=== PATIENT | female | born 1970 | race Caucasian/White ===

== ENCOUNTER 2020-01-26 10:09 | Emergency (ER) | payer OTHER ==
[~2020-01-26] VITALS: Ht 157.5 cm; Wt 113.4 kg
[2020-01-26 10:09] VITALS: BP 155/93
--- NOTE | 2020-01-26 10:09 | NUR ---
Patient BIBA ALS from [facility], transferred to bed 5. RN evaluating patient at bedside.
[2020-01-26 10:10] VITALS: BP 181/93
--- NOTE | 2020-01-26 10:10 | NUR ---
49 YO F BIBA FROM [facility] FOR C/C OF ABNORMAL LABS, 3.0 POTASSIUM REPORTED PER [facility]. PT IS TRACH TO CPAP, NONVERBAL, VSS. PT HAS A NGT, ABDOMINAL WOUND VAC, ORTA, AND A 3 LUMEN R CHEST CENTRAL LINE, NEGATIVE FOR COVID SYMPTOMS. PT AWAKE, ALERT, AND NODS HEAD TO QUESTIONS, ABLE TO FOLLOW COMMANDS. PT PLACED ON MEDICAL BILLER/CODER/PULSE OX. BED LOCKED AND IN LOWEST POSITION. SIDE RAILS X2.
--- NOTE | 2020-01-26 10:11 | NUR ---
RT AT BEDSIDE PLACING PT ON CPAP SETTINGS PER FACILITY
--- NOTE | 2020-01-26 10:11 | NUR ---
Dr. Bustillo is evaluating the patient at bedside.
--- NOTE | 2020-01-26 10:50 | NUR ---
injection molding process technician at bedside.
--- NOTE | 2020-01-26 11:43 | NUR ---
lab at bedside
[2020-01-26 12:00] LABS: BASOPHILS # (AUTO) 0.1 K/uL (0.00-0.22); BASOPHILS % (AUTO) 0.6 % (0.0-2.0); EOSINOPHILS # (AUTO) 0.5 K/uL (0-0.4); EOSINOPHILS % (AUTO) 3.9 % (0.0-4.0); HEMATOCRIT 27.5 % (36-48); HEMOGLOBIN 9.1 g/dL (12.0-16.0); LYMPHOCYTES # (AUTO) 0.9 K/uL (2.5-16.5); LYMPHOCYTES % (AUTO) 6.5 % (20.5-51.1); MEAN CORPUSCULAR HEMOGLOBIN 31 pg (27-31); MEAN CORPUSCULAR HGB CONC 33 g/dL (33-37); MEAN CORPUSCULAR VOLUME 93.1 fL (80-94); MONOCYTES % (AUTO) 7.4 % (1.7-9.3); NEUTROPHILS # (AUTO) 11.2 K/uL (1.8-7.7); NEUTROPHILS % (AUTO) 81.6 % (42.2-75.2); PLATELET COUNT (AUTO) 429 K/uL (140-450); RED BLOOD CELL COUNT(AUTO) 2.96 MIL/uL (4.20-5.40); RED CELL DISTRIBUTION WIDTH 16.4 % (11.6-13.7); WHITE BLOOD COUNT (AUTO) 13.7 K/uL (4.8-10.8)
[2020-01-26 12:18] LABS: ALBUMIN 2.3 g/dL (3.4-5.0); ANION GAP 6.9 (8-16); CARBON DIOXIDE 36.3 mmol/L (21-32); CREATININE 1.8 mg/dL (0.6-1.3); POTASSIUM 3.2 mmol/L (3.5-5.1); TOTAL BILIRUBIN 0.3 mg/dL (0.0-1.0)
[2020-01-26] MEDS ORDERED: POTASSIUM CHLORIDE 20% 40 MEQ/15 ML UDC PO ONE (12:30)
[2020-01-26] MEDS ORDERED: AZITHROMYCIN 1,000 MG in DEXTROSE 5% 500 ML IV ONE (12:45)
[2020-01-26] MEDS ORDERED: AZITHROMYCIN 500 MG INJ VIAL IV ONE (12:45)
--- NOTE | 2020-01-26 13:16 | NUR ---
UA AND RONI SWAB COLLECTED AND TAKEN TO LAB
[2020-01-26 13:26] LABS: APPEARANCE,URINE CLEAR (CLEAR); BILIRUBIN,URINE NEGATIVE (NEGATIVE); BLOOD, URINE 3+ (NEGATIVE); COLOR,URINE YELLOW (YELLOW); LEUKOCYTE ESTERASE ,URINE 1+ (NEGATIVE); NITRITE, URINE NEGATIVE (NEGATIVE); UGLUCOSE NEGATIVE (NEGATIVE)
[2020-01-26 13:31] LABS: RBC,URINE 11-20 (MOD) /HPF (0-5)
[2020-01-26 13:33] LABS: WBC,URINE 0-5 /HPF (0-5)
[2020-01-26 14:06] LABS: PROTHROMBIN TIME 10.4 secs (10.8-13.4)
[2020-01-26] MEDS ORDERED: NACL 0.9% 1,000 ML IV ONE (14:15)
--- NOTE | 2020-01-26 14:21 | NUR ---
PT ASLEEP IN BED. EQUAL CHEST RISE AND FALL. VSS. BED LOCKED AND IN LOWEST POSITION. SIDE RAILS X2.
--- NOTE | 2020-01-26 14:38 | NUR ---
RT AT BEDSIDE
[2020-01-26 14:43] VITALS: BP 144/80
[2020-01-26] MEDS ORDERED: HYDR-5122 NGT (14:55)
[2020-01-26] MEDS ORDERED: ONDA4TAB NGT (14:57)
--- NOTE | 2020-01-26 15:00 | NUR ---
pt provided with ice packs per request. pt states she "feels hot," pt able to communicate by mouthing words. oral temp reads 98.2
[2020-01-26] MEDS ORDERED: [UNRECOGNIZED DRUG - CODE] NGT (15:01)
[2020-01-26] MEDS ORDERED: OMEP20TC12 NGT (15:02)
[2020-01-26] MEDS ORDERED: MELA1TAB32 PO (15:03)
[2020-01-26] MEDS ORDERED: HEPA500056 SQ (15:04)
[2020-01-26] MEDS ORDERED: SEVE0.8P2 PO (15:06)
[2020-01-26] MEDS ORDERED: DOCU-299 NGT (15:08)
[2020-01-26] MEDS ORDERED: MAGN400S60 NGT (15:09)
[2020-01-26] MEDS ORDERED: HYDROcodone/APAP 5/325 MG 1 TAB TAB ONE (16:12)
--- NOTE | 2020-01-26 16:13 | NUR ---
ermd made aware of 10/10 lower back pain and request for pain management
[2020-01-26] MEDS ORDERED: HYDROcodone/APAP 5/325 MG 1 TAB TAB NG ONE (16:15)
[2020-01-26] MEDS ORDERED: CRUSHER, PILL MC ONE (16:20)
--- NOTE | 2020-01-26 18:21 | NUR ---
PT REQUESTING WATER THROUGH HER GTUBE. PT GIVEN 30 ML. TOLERATED WELL.
--- NOTE | 2020-01-26 19:02 | NUR ---
PTS TRACH SUCTIONED PER REQUEST. POSITIONED FOR COMFORT. ALL PT NEEDS MET AT THIS TIME.
--- NOTE | 2020-01-26 19:17 | NUR ---
REPORT GIVEN TO MARK SUN. TRANSFER OF CARE AT THIS TIME.
--- NOTE | 2020-01-26 19:17 | NUR ---
RECEIVED REPORT FROM MARK MEEHAN. TRANSFER OF CARE AT THIS TIME.
--- NOTE | 2020-01-26 19:22 | NUR ---
RECEIVED REPORT FROM MARK MEEHAN. TRANSFER OF CARE AT THIS TIME.
--- NOTE | 2020-01-26 19:30 | NUR ---
CALLED [facility] AND GAVE REPORT TO MARK CAVAZOS. [phone]
--- NOTE | 2020-01-26 19:32 | NUR ---
TRANSPORT TEAM ARRIVED
--- NOTE | 2020-01-26 19:52 | NUR ---
EMR TO CABIN OUTFITTER PT. REPORT GIVEN TO MARK MARQUES. TRANSFER OF CARE AT THIS TIME. PT TAKEN VIA AMANDA, 2 SENIOR AUTOMATION ENGINEER AND RN. PT IN STABLE CONDITION.
[2020-01-26 20:00] VITALS: BP 134/68
--- NOTE | 2020-01-26 20:00 | NUR ---
Patient to be transferred to [facility]. Is being transferred due to INSURANCE. Receiving facility has accepting physician and available space. ER physician has signed transfer form. Patient or responsible democrat has agreed to transfer and signed form. Patient belongings inventoried and will be sent with patient. Copy of nursing notes, lab reports, EKG, Physicians Orders and X-rays to be sent with patient. Report called to MARK CAVAZOS at receiving facility. [facility] ambulance service has been called for transfer.
== END 2020-01-26 20:00 | disposition short-term general hospital (02) ==
LOC: MED 10:09
DX: J18.9 Pneumonia, unspecified organism (principal); E83.52 Hypercalcemia; E87.6 Hypokalemia; R79.89 Other specified abnormal findings of blood chemistry; E86.0 Dehydration; Z88.0 Allergy status to penicillin; Z88.5 Allergy status to narcotic agent; Z88.1 Allergy status to other antibiotic agents; Z98.890 Other specified postprocedural states
CPT/HCPCS: 36415; 71045; 80053; 81001; 83605; 83880; 84484; 85025; 85610; 85730; 87040; 87086; 87426; 93005; 96365; 96366; 99285; J0456; J7030